=== PATIENT | female | born 1950 | race Caucasian/White ===

== ENCOUNTER → 2016-08-28 | Outpatient (CLI) | payer MEDICARE ==
--- NOTE | 2016-08-28 17:03 | KCIC ---
MRI of the brain without contrast 08/28/2016 Clinical History: Increased daytime sleepiness, fatigue and confusion over the last year. Left hand shakiness. Unsteady gait. Technique: Unenhanced T1-weighted sagittal and axial, T2-weighted axial and coronal and FLAIR, gradient echo and diffusion-weighted axial images of the brain were obtained. Findings: No previous imaging studies are available for comparison. There is generalized parenchymal atrophy. Patchy and a few small scattered areas of increased signal intensity are seen within the periventricular and subcortical white matter of both cerebral hemispheres on the FLAIR and T2-weighted images consistent with areas of mild small vessel ischemic disease. No acute parenchymal abnormality is seen. No extra-axial fluid collection is seen. There is no MRI evidence of acute ischemia/infarction. The paranasal sinuses are essentially clear. Normal flow voids are seen within the major vascular structures surrounding the brain parenchyma. Impression: No acute parenchymal abnormality is seen. Electronically signed by: Humberto Mckeon MD (08/28/2016 5:00 PM)
== END | disposition home or self-care (01) ==
LOC: KCIC MRI 14:23
PROVIDERS: ATTEND Family Medicine
DX: R40.0 Somnolence (principal); R53.83 Other fatigue; R41.0 Disorientation, unspecified
CPT/HCPCS: 70551

== ENCOUNTER → 2018-08-01 | Outpatient (CLI) | payer MEDICARE ==
[~2018-08-01] MED LIST: CONTRAST GIVEN. MC PRN; IOHEXOL 240 MG/ML 50ML VIAL. PO ONE; IOHEXOL 300 MG/ML 100ML VIAL. IV ONE
--- NOTE | 2018-08-01 12:44 | RAD ---
CT ABD PELV W/ORAL IV CONTRAST Indication: Periumbilical pain, history Crohn's disease and lymphoma Technique: Postcontrast CT imaging was performed of the abdomen pelvis, multiplanar reconstruction images submitted. Oral contrast was also given. One or more of the following individualized dose reduction techniques were utilized for this examination: 1. Automated exposure control 2. Adjustment of the mA and/or kV according to patient size 3. Use of iterative reconstruction technique. Comparison: None available Findings: There is no significant abnormality of the limited visualized lung bases. There is nonspecific mild wall thickening of the visualized distal esophagus. Both kidneys enhance, mild left hydronephrosis without obstructive calculus identified. There is a tiny hypodense lesion superior left kidney too small to accurately characterize about 0.3 cm. There is no abnormality of the pancreas or spleen. Gallbladder is present without obvious intraluminal abnormality by CT. Tiny hypodense lesion of the lateral left lobe of the liver 0.3 cm is too small to accurately characterize. There is no adrenal nodularity. There is prominent retained stool greatest of the ascending and transverse colon although also seen in segments of the descending and sigmoid colon, also some gas distention of rectum. There is long segment wall thickening of small bowel such as seen centrally and extending to the terminal ileum, some other segments of noncontiguous small bowel wall thickening. There is more patulous appearance of segment of small bowel between segments of wall thickening in the anterior pelvis. No free air is identified. No localized extraluminal fluid collection/abscess is identified. Appendix is not clearly identified if still present. There are superior compression fractures L2, L1, T12 with very osseous retropulsion superiorly at these levels. There is lytic focus of the L1 vertebral body on the right although possibly a hemangioma. IMPRESSION: 1. There is long segment small bowel wall thickening greatest centrally and in the pelvis extending to the terminal ileum, evidence of enteritis. There is prominent retained stool in the colon. 2. There is mild left hydronephrosis of uncertain chronicity, no obstructive calculus. 3. There are superior L2, L1, and T12 compression fractures with minimal osseous retropulsion superiorly, otherwise difficult to determine age on this exam. There is lytic focus of the L2 vertebral body on the right although possibly a hemangioma. 4. There is nonspecific mild wall thickening of the distal esophagus, could be seen with esophagitis. Electronically signed by: Vincent Griffin MD (08/01/2018 12:41 PM) [id number]
== END | disposition home or self-care (01) ==
LOC: CT 09:01
PROVIDERS: ATTEND Family Medicine
DX: N28.89 Other specified disorders of kidney and ureter (principal); N13.30 Unspecified hydronephrosis; K63.89 Other specified diseases of intestine; K56.41 Fecal impaction; M48.56XA Collapsed vertebra, not elsewhere classified, lumbar region, initial encounter for fracture; Z79.899 Other long term (current) drug therapy; Z85.72 Personal history of non-Hodgkin lymphomas; Z87.19 Personal history of other diseases of the digestive system
CPT/HCPCS: 74177; Q9966; Q9967